=== PATIENT | female | born 2000 | race Caucasian/White ===

== ENCOUNTER 2021-12-26 10:03 | Inpatient (IN) | payer BC, OTHER ==
[~2021-12-26 10:03] MED LIST: Bupivacaine 0.25% HCL 30 ML VIAL ONE; Bupivacaine HCl 0.5%/Epinephrine 1:200,000/PF 30 ml Vial ONE; ePHEDrine Sulfate 50 MG/10 ML VIAL ONE
[2021-12-26] MEDS ORDERED: Docusate 100 MG CAP PO PRN (10:06)
[2021-12-26] MEDS ORDERED: Promethazine HCl 25 MG/ML VIAL IM PRN ×2 (10:06→17:31)
[2021-12-26] MEDS ORDERED: Diphenoxylate HCl/Atropine Tablet PO PRN ×2 (10:06)
[2021-12-26] MEDS ORDERED: hydrALAZINE 20 MG/ML VIAL SLOW IVP PRN (10:06)
[2021-12-26] MEDS ORDERED: Ibuprofen 800 MG TAB PO PRN (10:06)
[2021-12-26] MEDS ORDERED: Ondansetron PF 4 MG/2 ML Vial IVP PRN ×2 (10:06→17:31)
[2021-12-26] MEDS ORDERED: Misoprostol 200 MCG TAB PR PRN (10:06)
[2021-12-26] MEDS ORDERED: Butorphanol Tartrate 1 MG/ML VIAL SLOW IVP PRN (10:06)
[2021-12-26] MEDS ORDERED: Acetaminophen 500 MG TAB PO PRN (10:06)
[2021-12-26] MEDS ORDERED: HYDROcodone/Acetaminophen 5/325 mg Tablet PO PRN ×2 (10:06)
[2021-12-26] MEDS ORDERED: Lidocaine 1% (PF) 30 ML VIAL SC PRN (10:06)
[2021-12-26] MEDS ORDERED: Lactated Ringer's 1,000 ML IV SCH (10:15)
[2021-12-26] MEDS ORDERED: Penicillin G Potassium 5 MILL.UNITS in Sodium Chloride 0.9% 100 ML IVPB SCH (10:15)
[2021-12-26] MEDS ORDERED: Azithromycin 500 MG in Sodium Chloride 0.9% 250 ML 250 ML IVPB SCH (10:15)
[2021-12-26 11:01] VITALS: BMI 40.8
[2021-12-26 11:23] LABS: Hemoglobin 11.3 g/dL (12.0-15.5); Mean Corpuscular HGB CONC 34.2 g/dL (32.0-36.0); Mean Corpuscular Hemoglobin 29.4 pg (27.0-33.0); Mean Corpuscular Volume 85.9 fl (81.6-98.3); Mean Platelet Volume 10.5 fl (7.4-10.4); Platelet Count 268 10x3/uL (150-450); RBC Distribution Width 13.1 % (11.5-14.5); Red Blood Cell (RBC) Count 3.84 10x6/uL (3.90-5.03); White Blood Cell (WBC) Count 13.5 10x3/uL (3.5-10.5)
[2021-12-26] MEDS: NS w/ Oxytocin 30 units 500 ML IV SCH (11:26)
[2021-12-26 11:53] LABS: Syphilis Antibody Nonreactive (Nonreactive); Syphilis Antibody Index 0.02 S/CO (<1.00 Non-Reactive)
[2021-12-26 11:55] LABS: HIV (1/2) Antibody/Antigen Non-Reactive (NonReactive); HIV 1/2 INDEX 0.08 S/CO (<1.00); Hep B Surf Ag Non-Reactive S/CO (NonReactive)
[2021-12-26] MEDS ORDERED: Fentanyl 2 mcg/Bup 0.1% Cadd 100 ML ONE (17:00)
[2021-12-26] MEDS ORDERED: ePHEDrine Sulfate 50 MG/10 ML VIAL SLOW IVP PRN (17:31)
[2021-12-26] MEDS ORDERED: Moisturizing Cream (Eucerin) 113 GM JAR TOP PRN (17:31)
[2021-12-26] MEDS ORDERED: Acetaminophen 325 MG TAB PO PRN (17:31)
[2021-12-26] MEDS ORDERED: Naloxone HCl 0.4 mg/ml Vial IVP PRN ×2 (17:31)
[2021-12-26] MEDS ORDERED: diphenhydrAMINE 50 MG/ML VIAL IVP PRN (17:31)
[2021-12-26] MEDS ORDERED: Lactated Ringer's 500 ML IV PRN (17:31)
[2021-12-26] MEDS ORDERED: Fentanyl 2 mcg/Bupivacaine 0.1% Cassette 100 ML EPIDURAL SCH (17:45)
[2021-12-26] MEDS ORDERED: Communication Order-Pharmacy FS SCH (17:45)
[2021-12-26] MEDS: Penicillin G 2.5 MILL.units 50 ML IVPB SCH ×2 (17:56→22:27)
[2021-12-26 19:14] LABS: SARS-CoV-2 NAA Rapid Test Not Detected (NotDetected)
[2021-12-26] MEDS ORDERED: Fentanyl 100 MCG/2 ML VIAL ONE (21:02)
[2021-12-27] MEDS: Penicillin G 2.5 MILL.units 50 ML IVPB SCH (02:46)
[2021-12-27] MEDS ORDERED: HYDROcodone/Acetaminophen 5/325 mg Tablet PO PRN ×2 (05:42)
[2021-12-27] MEDS ORDERED: Misoprostol 200 MCG TAB VAG PRN (05:42)
[2021-12-27] MEDS ORDERED: hydrALAZINE 20 MG/ML VIAL SLOW IVP PRN (05:42)
[2021-12-27] MEDS ORDERED: Preparation H Ointment 28 GM TUBE PR PRN (05:42)
[2021-12-27] MEDS ORDERED: diphenhydrAMINE 25 MG CAP PO PRN (05:42)
[2021-12-27] MEDS ORDERED: Boostrix 0.5 ML (Tdap) VIAL (>/=7 yrs of age) IM ONE (05:42)
[2021-12-27] MEDS ORDERED: Benzocaine-Menthol 82.5 ML CAN TOP PRN (05:42)
[2021-12-27] MEDS ORDERED: Bisacodyl 10 MG SUPP PR PRN (05:42)
[2021-12-27] MEDS ORDERED: Milk Of Magnesia 30 ML UDCUP PO PRN (05:42)
[2021-12-27] MEDS ORDERED: Zolpidem Tartrate 5 MG TAB PO PRN (05:42)
[2021-12-27] MEDS ORDERED: Lanolin Ointment 7 GM TUBE TOP PRN (05:42)
[2021-12-27] MEDS ORDERED: Ondansetron PF 4 MG/2 ML Vial IVP PRN (05:42)
[2021-12-27] MEDS ORDERED: NS w/ Oxytocin 30 units 500 ML IV SCH (05:45)
[2021-12-27] MEDS: NS w/ Oxytocin 30 units 500 ML IV SCH (06:16)
[2021-12-27] MEDS: Ibuprofen 800 MG TAB PO SCH ×3 (13:55→21:53)
[2021-12-27] MEDS: Ferrous Sulfate 325 MG TAB PO SCH ×2 (15:19→17:33)
[2021-12-27] MEDS: Prenatal Vitamin 1 TAB PO SCH (15:19)
[2021-12-27] MEDS: Docusate 100 MG CAP PO SCH ×2 (15:19→21:54)
[2021-12-28] MEDS: Ibuprofen 800 MG TAB PO SCH ×3 (05:23→22:05)
[2021-12-28] MEDS: Ferrous Sulfate 325 MG TAB PO SCH ×2 (07:34→16:30)
[2021-12-28 08:09] VITALS: TEMP 98.2
[2021-12-28] MEDS: Docusate 100 MG CAP PO SCH ×2 (08:43→20:45)
[2021-12-28] MEDS: Prenatal Vitamin 1 TAB PO SCH (08:43)
[2021-12-29] MEDS: Ibuprofen 800 MG TAB PO SCH ×2 (07:07→13:51)
[2021-12-29] MEDS: Ferrous Sulfate 325 MG TAB PO SCH (07:22)
[2021-12-29 08:02] VITALS: BP 111/71
[2021-12-29] MEDS: Docusate 100 MG CAP PO SCH (08:54)
[2021-12-29] MEDS: Prenatal Vitamin 1 TAB PO SCH (08:54)
== END 2021-12-29 14:15 | disposition home or self-care (01) | DRG 807 ==
LOC: CSHLD/OP 10:03 → CSHLD 10:07 → CSHPP 12-27 09:00
PROVIDERS: ADMIT Obstetrics & Gynecology; ATTEND Obstetrics & Gynecology
PROC: 3E033VJ Introduction of Other Hormone into Peripheral Vein, Percutaneous Approach (ICD-10-PCS; 2021-12-26)
PROC: 10E0XZZ Delivery of Products of Conception, External Approach (ICD-10-PCS; principal; 2021-12-27)
PROC: 0KQM0ZZ Repair Perineum Muscle, Open Approach (ICD-10-PCS; 2021-12-27)
PROC: 0W8NXZZ Division of Female Perineum, External Approach (ICD-10-PCS; 2021-12-27)
DX: O42.02 Full-term premature rupture of membranes, onset of labor within 24 hours of rupture (principal); Z37.0 Single live birth; O99.824 Streptococcus B carrier state complicating childbirth; Z20.822 Contact with and (suspected) exposure to COVID-19; Z3A.38 38 weeks gestation of pregnancy; O70.1 Second degree perineal laceration during delivery
CPT/HCPCS: 36415; 51702; 85027; 86780; 86850; 86900; 86901; 87340; 87389; J0456; J2540; J2590; J3010; J3490; J7050; S0020; U0002

== ENCOUNTER 2023-11-19 13:35 | Outpatient (CLI) | payer OTHER ==
[2023-11-19 14:38] LABS: Hematocrit 38.3 % (34.9-44.5); Hemoglobin 12.9 g/dL (12.0-15.5); Mean Corpuscular HGB CONC 33.7 g/dL (32.0-36.0); Mean Corpuscular Hemoglobin 28.9 pg (27.0-33.0); Mean Corpuscular Volume 85.7 fL (81.6-98.3); Mean Platelet Volume 10.4 fL (7.4-10.4); Platelet Count 302 10x3/uL (150-450); RBC Distribution Width 13.3 % (11.5-14.5); Red Blood Cell (RBC) Count 4.47 10x6/uL (3.90-5.03); White Blood Cell (WBC) Count 11.8 10x3/uL (3.5-10.5)
[2023-11-19 14:46] LABS: BHCG - Serum Negative (NEGATIVE); Pregs Control Background? CLEAR/WHITE (CLR/WHITE); Pregs Control Bar Appear? YES (CONTROL BAR)
[2023-11-19 15:00] LABS: Bilirubin Neg (Negative); Blood, Urine 250 (Negative); Clarity Cloudy (Clear); Glucose, Urine (Dipstick) Normal (Negative); Ketone, Urine 5 mg/dL (Negative); Leukocyte 25 (Negative); Nitrite Positive (Negative); Protein, Urine (Dipstick) Negative (Neg-Trace)
== END 2023-11-19 13:36 | disposition home or self-care (01) ==
LOC: CSHLAB 13:35
PROVIDERS: ATTEND Obstetrics & Gynecology
DX: Z01.812 Encounter for preprocedural laboratory examination (principal); N92.0 Excessive and frequent menstruation with regular cycle; N85.2 Hypertrophy of uterus; N94.10 Unspecified dyspareunia; R93.89 Abnormal findings on diagnostic imaging of other specified body structures
CPT/HCPCS: 81003; 84703; 85027